=== PATIENT | male | born 1955 | race Caucasian/White ===

== ENCOUNTER → 2017-02-06 | Outpatient (CLI) | payer BC ==
[~2017-02-06] MED LIST: HYDR25TA5 PO; LSN20 PO; OPTIRAY 320 IV PRN
--- NOTE | 2017-02-06 14:14 | DIAGNOSTIC IMAGING REPORT ---
ABDOMEN AND PELVIS CT WITH IV AND ORAL CONTRAST CT DOSE: 805.16 mGycm HISTORY: Weight loss WEIGHT LOSS, ABD FULLNESS, PAIN AND NAUSEA TECHNIQUE: Multiaxial CT images of the abdomen and pelvis were performed following the use of intravenous and oral contrast. COMPARISON STUDY: None. FINDINGS: The lung bases are clear. The liver, spleen, gallbladder, pancreas, kidneys, and adrenal glands are within normal limits. No bowel wall thickening or obstruction. The pelvic organs are unremarkable. No suspicious lytic or blastic osseous lesions. IMPRESSION: No significant abnormality identified within the abdomen or pelvis. Electronically signed by: Rhett Ortega M.D. 02/06/2017 2:13 PM Dictated Date/Time: 02/06/2017 2:11 PM
== END | disposition home or self-care (01) ==
LOC: C.CTS 13:05
PROVIDERS: ATTEND Family Medicine
DX: R10.9 Unspecified abdominal pain (principal); R11.0 Nausea; R19.8 Other specified symptoms and signs involving the digestive system and abdomen; R63.4 Abnormal weight loss

== ENCOUNTER → 2018-03-29 | Outpatient (CLI) | payer OTHER ==
[~2018-03-29] MED LIST changes: +ACET-1256 PO; +AMLO5TAB3 PO; +HYDR25TA4 PO; +LISI-725 PO; +LISI-726 PO; -LSN20 PO; -OPTIRAY 320 IV PRN
== END | disposition home or self-care (01) ==
LOC: C.CPL 16:10
PROVIDERS: ATTEND Surgery
DX: Z01.810 Encounter for preprocedural cardiovascular examination (principal); K60.2 Anal fissure, unspecified

== ENCOUNTER → 2018-04-09 | Day surgery (SDC) | payer OTHER ==
[2018-03-31 10:05] VITALS: Ht 188 cm; Wt 93.2 kg
[~2018-04-09] VITALS: Ht 188 cm; Wt 93.2 kg
[~2018-04-09] MED LIST changes: +ATROPINE SULFATE 0.1 MG/ML 5ML SYR IV PRN; +BENZOIN SPRAY 118 ML BTL TOP ONE; +BUPIVACAINE/EPINEPHRINE 0.5% MPF 1:200,000 30 ML VIAL ONE; +CEFAZOLIN 2000MG IV PUSH 15 ML IV SCH; +DEXAMETHASONE SOD INJ 4 MG/ML VIAL ONE; +EpHEDrine SULFATE INJ 50 MG/ML AMP IV PRN; +FENTANYL CITRATE INJ 50 MCG/1 ML 2 ML VIAL IV PRN; +FENTANYL CITRATE INJ 50 MCG/1 ML 2 ML VIAL ONE; +GELATIN SPONGE SZ 100 ONE; +GLYCOPYRROLATE INJ 0.2 MG/ML VIAL ONE; +HYDR-5688 PO; -HYDR25TA5 PO; +HYDROCODONE/ACETAMIN 5/325MG TAB PO PRN; +LACTATED RINGER'S 1000ML 1,000 ML IV SCH; +LIDOCAINE 2% JELLY 5 ML TUBE ONE; +LIDOCAINE HCL 2% 2 ML VIAL (20MG/ML) ONE; -LISI-726 PO; +METHYLENE BLUE 0.5% 10 ML VIAL ONE; +MIDAZOLAM HCL 1 MG/ML 2ML VIAL ONE; +MoRPHine SULFATE 2 MG/ML CARP IV PRN; +NEOSTIGMINE METHYLSULFATE 5 MG/5 ML SYR ONE; +ONDANSETRON INJ 2 MG/ML 2 ML VIAL IV PRN; +ONDANSETRON INJ 2 MG/ML 2 ML VIAL ONE; +PROPOFOL IV EMULSION 10 MG/ML 20 ML VIAL ONE; +ROCURONIUM BROMIDE 10 MG/ML 5 ML VIAL ONE
--- NOTE | 2018-04-09 08:43 | Discharge Instructions-SurgCtr ---
Discharge Instructions Date of Service Apr 09, 2018. Visit Reason for Visit: Anal Fissure, Hemorrhoids Discharge Discharge Diagnosis / Problem: chito-rectal lesion/fistula Discharge Goals Goal(s): Decrease discomfort, Learn about illness, Therapeutic intervention Activity Recommendations Activity Limitations: as noted below Lifting Limitations: gradually increase as tolerated Exercise/Sports Limitations: gradually increase as tolerated Shower/Bathe: no limitations Anesthesia . Post Anesthesia Instructions: If you have had General Anesthesia or IV Sedation: * Do not drive today. * Resume driving when surgeon permits. * Do not make important decisions or sign legal documents today. * Call surgeon for: 1. Temperature elevations greater than 101 degrees F. 2. Uncontrollable pain. 3. Excessive bleeding. 4. Persistent nausea and vomiting. 5. Medication intolerance (nausea, vomiting or rash). * For nausea and vomiting use only clear liquids such as: tea, soda, bouillon until nausea subsides, then gradually increase diet as tolerated. * If you have any concerns or questions, call your surgeon's office. If physician is unavailable and it is an emergency, call 911 or go to the nearest emergency room. . Instructions / Follow-Up Instructions / Follow-Up call [phone] if any questions or concerns. Diet Recommendations Home Diet: resume previous diet (avoid spicy foods) Pending Studies Studies pending at discharge: yes List of pending studies: pathology report Medical Emergencies . Who to Call and When: Medical Emergencies: If at any time you feel your situation is an emergency, please call 911 immediately. . Non-Emergent Contact Non-Emergency issues call your: Primary Care Provider, Surgeon Call Non-Emergent contact if: temperature is above 101, wound has increased drainage, wound has increased redness, wound has increased pain . . "Provider Documentation" section prepared by Yoan Nagy. .
--- NOTE | 2018-04-09 10:55 | History & Physical Bridge Note ---
H&P Re-Evaluation Bridge Note: I have examined the patient, reviewed the History & Physical and in the interval since the performance of the History & Physical I have noted the following changes of clinical significance: No changes noted
--- NOTE | 2018-04-09 12:00 | [facility] Post Operative Brief Note ---
Immediate Operative Summary Operative Date Apr 09, 2018. Pre-Operative Diagnosis Deja Fissure, Hemorrhoids Post-Operative Diagnosis anal fissure/anal lesion/anal skin tag Procedure(s) Performed Rectal Exam Under Anesthesia, Anal Skin Tag Excision, Internal Sphinchterotomy, Rectal Biopsy Surgeon Dr. Nagy [employer] Executive Surgeon(s) Tyree Gee PA-C Estimated Blood Loss 5 cc Findings Consistent with Post-Op Diagnosis Specimens A: Anal Skin Tag B:Rectal Biopsy Anesthesia Type General Complication(s) none
--- NOTE | 2018-04-09 12:15 | [facility] Operative Report ---
Operative Report Operative Date Apr 09, 2018. Pre-Operative Diagnosis Deja Fissure, Hemorrhoids Post-Operative Diagnosis anal fissure/anal lesion/anal skin tag Procedure(s) Performed Rectal Exam Under Anesthesia, Anal Skin Tag Excision, Internal Sphinchterotomy, Rectal Biopsy Surgeon Dr. Nagy [employer] Surgeon(s) Tyree Gee PA-C Estimated Blood Loss 5 cc Specimens A: Anal Skin Tag B:Rectal Biopsy Anesthesia Type General Complication(s) none Description of Procedure After informed consent was obtained the patient was taken to the operating room and placed in supine position. After successful intubation the patient was rolled and placed into a prone jackknife position. The buttocks were taped apart with benzoin and 3 inch silk tape. The entire rectal area was sterilely prepped and draped in usual fashion. We began by simply inspecting the anus and rectum. There was a large skin tag. There was also what had the appearance of a very large chronic anal fissure. However this was very firm mildly concerning for an anal cancer. We used the proctoscope to examine the rectum and 360. Other than some mild hemorrhoidal tissue no other abnormalities were seen. I began by injecting some Marcaine around the skin tag. I used a 15 blade scalpel to take down the anoderm and then dissected back to its pedicle with a Metzenbaum scissor. A hemorrhoid clamp was placed over it and it was excised and sent to pathology. 3-0 chromic catgut was used to sew and tie off the pedicle. I then took some of the firm areas of the anal fissure and used sharp knife to perform a superficial biopsy of this fissure. Because of the appearance and chronicity of the fissure I decided to perform an internal sphincterotomy as was discussed with him previously. I was able to palpate on the left lateral side and made a small incision in the anoderm. I was able to use a hemostat to dissect the internal sphincter and come underneath the entire muscle with a hemostat. I used cautery to transect about 50-60% of the sphincter muscle. There was adequate hemostasis at the end of the case. I oversewed the anal skin over the sphincterotomy with 4-0 Monocryl in simple interrupted fashion. The entire area was irrigated. Marcaine was injected around all the areas for postoperative analgesia. Proctofoam with lidocaine jelly was placed into the rectum itself. The buttocks were untaped and the patient was rolled back into a supine position extubated and transferred recovery in stable condition. My physician cafe assistant was present throughout the entire case. He helped prep the patient. He helped with retraction for exposure and dressing placement at the end of the case. I attest to the content of the Intraoperative Record and any orders documented therein. Any exceptions are noted below.
[2018-04-09 12:56] VITALS: TEMP 37.4
--- NOTE | 2018-04-09 13:06 | Anesthesia Progress Nt - [facility] ---
Anesthesia Post Op Note Date & Time Apr 09, 2018 at 13:05 Vital Signs Pain Intensity: 0 Vital Signs Past 12 Hours Date Time Temp Pulse Resp B/P (MAP) Pulse Ox O2 Delivery O2 Flow Rate FiO2 04/09/18 12:56 37.4 68 16 149/89 (109) 96 Room Air 04/09/18 12:52 72 8 04/09/18 12:52 73 8 97 04/09/18 12:50 146/94 04/09/18 12:47 36.6 68 20 143/88 97 Room Air 04/09/18 12:47 80 11 98 04/09/18 12:47 79 11 04/09/18 12:46 69 8 04/09/18 12:46 70 8 98 04/09/18 12:45 143/88 04/09/18 12:41 73 12 97 04/09/18 12:41 75 12 04/09/18 12:40 139/82 04/09/18 12:36 75 7 97 04/09/18 12:36 75 7 04/09/18 12:35 139/82 04/09/18 12:31 80 11 100 04/09/18 12:31 82 11 04/09/18 12:30 80 11 04/09/18 12:30 81 11 133/83 100 04/09/18 12:29 83 8 04/09/18 12:29 82 8 100 04/09/18 12:25 141/83 04/09/18 12:24 88 10 100 04/09/18 12:24 88 10 04/09/18 12:21 152/87 04/09/18 12:19 36.4 96 12 152/87 99 Mask 8 04/09/18 09:29 36.7 73 18 164/81 (108) 99 Room Air Notes Mental Status: alert / awake / arousable, participated in evaluation Pt Amnestic to Procedure: Yes Nausea / Vomiting: adequately controlled Pain: adequately controlled Airway Patency, RR, SpO2: stable & adequate BP & HR: stable & adequate Hydration State: stable & adequate Anesthetic Complications: no major complications apparent
[2018-04-09 13:20] VITALS: BP 151/80; PULSE 59; O2SAT 98
== END | disposition home or self-care (01) ==
LOC: X.SURG 08:50
PROVIDERS: ATTEND Surgery
DX: K60.2 Anal fissure, unspecified (principal); K64.9 Unspecified hemorrhoids; I10 Essential (primary) hypertension; Z88.2 Allergy status to sulfonamides; Z79.899 Other long term (current) drug therapy